=== PATIENT | female | born 1950 ===

== ENCOUNTER 2018-07-02 19:08 | Inpatient (IN) | payer MEDICARE, OTHER ==
[~2018-07-02] VITALS: Ht 162.6 cm; Wt 104.6 kg
[2018-07-02] MEDS ORDERED: HUMULIN 70100 UNIT/2 SC (19:34)
[2018-07-02] MEDS ORDERED: ALBU90OI61 INH (19:35)
[2018-07-02] MEDS ORDERED: CHOL10002 PO (19:35)
[2018-07-02] MEDS ORDERED: SUMA25 PO (19:35)
[2018-07-02] MEDS ORDERED: ATOR80 PO (19:37)
[2018-07-02] MEDS ORDERED: LORA1SY PO (19:37)
[2018-07-02] MEDS ORDERED: ASPI81CH PO (19:37)
[2018-07-02] MEDS ORDERED: Percocet 7.5-31 EACH PO (19:37)
[2018-07-02] MEDS ORDERED: PANT40 PO (19:39)
[2018-07-02] MEDS ORDERED: METF500C PO (19:39)
[2018-07-02] MEDS ORDERED: POTCHL20ER PO (19:40)
[2018-07-02] MEDS ORDERED: GABA300 PO (19:41)
[2018-07-02] MEDS ORDERED: FURO40 PO (19:41)
[2018-07-02 19:45] LABS: PCO2 Arterial 51.6 mmHg (35-45); PO2 Arterial 64.6 mmHg (80-100); pH Blood Arterial 7.44 (7.35-7.45)
[2018-07-02 20:13] LABS: BASOPHILS ABSOLUTE AUTO 0.05 K/mm3 (0.00-0.23); BASOPHILS PERCENT AUTO 1 % (0-2); EOSINOPHILS ABSOLUTE AUTO 0.01 K/mm3 (0.00-0.68); EOSINOPHILS PERCENT AUTO 0 % (0-6); Hematocrit 35.7 % (33.0-51.0); Hemoglobin 9.9 g/dL (11.5-16.0); IMMATURE GRAN ABSOLUTE AUTO 0.05 K/mm3 (0.00-0.10); IMMATURE GRAN PERCENT AUTO 1 % (0-1); LYMPHOCYTES ABSOLUTE AUTO 1.21 K/mm3 (0.84-5.20); LYMPHOCYTES PERCENT AUTO 12 % (21-46); MONOCYTES ABSOLUTE AUTO 0.96 K/mm3 (0.16-1.47); MONOCYTES PERCENT AUTO 9 % (4-13); Mean Corpuscular HGB 18.6 pg (26.0-34.0); Mean Corpuscular HGB Conc 27.7 g/dL (31.5-36.5); Mean Corpuscular Volume 67 fL (80-100); Mean Platelet Volume 9.1 fL (9.1-12.4); NEUTROPHILS ABSOLUTE AUTO 8.09 K/mm3 (1.96-9.15); NEUTROPHILS PERCENT AUTO 78 % (41-73); Platelet Count 302 K/mm3 (150-400); RDW Coefficient Variation 20.1 % (11.7-14.2); RDW Standard Deviation 47.2 fL (35.1-46.3); Red Blood Cell Count 5.32 M/mm3 (3.80-5.20); White Blood Cell Count 10.37 K/mm3 (4.00-11.30)
[2018-07-02 20:36] LABS: Acetaminophen, Random <2.0 ug/mL (10.0-30.0); Anion Gap 10 mmol/L (6-16); Blood Urea Nitrogen 18 mg/dL (8-24); Bun/Creatinine Ratio 14.8 (12.0-20.0); CO2, Blood 32 mmol/L (21-32); Calcium, Blood 8.2 mg/dL (8.5-10.1); Chloride, Blood 90 mmol/L (98-108); Creatinine, Blood 1.22 mg/dL (0.40-1.00); Glomerular Filtration Rate 47 (60-); Glucose, Blood 165 mg/dL (70-99); Potassium, Blood 3.4 mmol/L (3.5-5.5); Salicylate 6.9 mg/dL (2.8-20.0); Sodium, Blood 132 mmol/L (136-145)
[2018-07-02 20:52] LABS: Source, Urine Catheter
[2018-07-02 20:55] LABS: Blood, Urine 2+ (Neg); Glucose Qualitative, Urine Neg (Neg); Ketones, Urine 1+ (Neg); Leukocyte Esterase, Urine 2+ (Neg); Nitrite, Urine Pos (Neg); Protein, Urine 2+ (Neg); Urobilinogen, Urine 1+ (Normal)
[2018-07-02 21:08] LABS: Appearance, Urine Cloudy (Clear); Bilirubin, Urine 1+ (Neg); Color, Urine Yellow (P-Yellow)
[2018-07-02 21:09] LABS: Bacteria Many /hpf
[2018-07-02 21:10] LABS: Squamous Epithelial Cells Few /hpf (Few)
[2018-07-02 23:05] LABS: International Normalized Ratio 1.1; Prothrombin Time Results 11.3 Sec (9.7-11.5)
[2018-07-03 04:24] LABS: BASOPHILS ABSOLUTE AUTO 0.08 K/mm3 (0.00-0.23); BASOPHILS PERCENT AUTO 1 % (0-2); EOSINOPHILS ABSOLUTE AUTO 0.04 K/mm3 (0.00-0.68); EOSINOPHILS PERCENT AUTO 0 % (0-6); Hematocrit 33.6 % (33.0-51.0); Hemoglobin 9.8 g/dL (11.5-16.0); IMMATURE GRAN ABSOLUTE AUTO 0.06 K/mm3 (0.00-0.10); IMMATURE GRAN PERCENT AUTO 1 % (0-1); LYMPHOCYTES ABSOLUTE AUTO 2.04 K/mm3 (0.84-5.20); LYMPHOCYTES PERCENT AUTO 18 % (21-46); MONOCYTES ABSOLUTE AUTO 1.23 K/mm3 (0.16-1.47); MONOCYTES PERCENT AUTO 11 % (4-13); Mean Corpuscular HGB 19.2 pg (26.0-34.0); Mean Corpuscular HGB Conc 29.2 g/dL (31.5-36.5); Mean Corpuscular Volume 66 fL (80-100); Mean Platelet Volume 9.6 fL (9.1-12.4); NEUTROPHILS PERCENT AUTO 69 % (41-73); NRBC ABSOLUTE 0.02 K/mm3 (0.00-0.02); NRBC Auto 0.2 /100 WBC (0.0-0.2); Platelet Count 330 K/mm3 (150-400); RDW Coefficient Variation 20.3 % (11.7-14.2); RDW Standard Deviation 46.5 fL (35.1-46.3); White Blood Cell Count 11.25 K/mm3 (4.00-11.30)
[2018-07-03] MEDS ORDERED: VARE1 PO (04:33)
[2018-07-03] MEDS ORDERED: Prozac20 MG PO (04:36)
[2018-07-03 04:47] LABS: LDL/HDL RATIO 0.6; Magnesium, Blood 1.9 mg/dL (1.6-2.4)
[2018-07-03 04:48] LABS: Anion Gap 10 mmol/L (6-16); Blood Urea Nitrogen 18 mg/dL (8-24); Bun/Creatinine Ratio 22.7 (12.0-20.0); CHOL/HDL RATIO 1.9; CO2, Blood 32 mmol/L (21-32); Calcium, Blood 7.9 mg/dL (8.5-10.1); Chloride, Blood 92 mmol/L (98-108); Cholesterol 107 mg/dL (50-200); Creatine Kinase MB 5.3 ng/mL (0.0-3.6); Creatine Kinase MB Index 2.7 (0.0-4.0); Creatinine, Blood 0.79 mg/dL (0.40-1.00); Glomerular Filtration Rate >60 (60-); Glucose, Blood 208 mg/dL (70-99); HDL Cholesterol 56 mg/dL (>39); Low Density Lipoprotein Chol 31 mg/dL (0-110); Potassium, Blood 3.2 mmol/L (3.5-5.5); Sodium, Blood 134 mmol/L (136-145); Triglycerides 99 mg/dL (30-160); Very Low Density Lipoprot Chol 19 mg/dL (6-32)
[2018-07-03 04:49] LABS: Percent Saturation 3.3 % (15.0-50.0)
[2018-07-03 04:59] LABS: Troponin I 1.24 ng/mL (0.000-0.040)
[2018-07-03 13:34] LABS: Creatine Kinase MB 2.9 ng/mL (0.0-3.6); Creatine Kinase MB Index 1.7 (0.0-4.0)
[2018-07-03 13:45] LABS: Troponin I 0.803 ng/mL (0.000-0.040)
[2018-07-04 03:46] LABS: BASOPHILS ABSOLUTE AUTO 0.05 K/mm3 (0.00-0.23); BASOPHILS PERCENT AUTO 1 % (0-2); EOSINOPHILS ABSOLUTE AUTO 0.07 K/mm3 (0.00-0.68); EOSINOPHILS PERCENT AUTO 1 % (0-6); Hematocrit 33.3 % (33.0-51.0); Hemoglobin 9.4 g/dL (11.5-16.0); IMMATURE GRAN ABSOLUTE AUTO 0.03 K/mm3 (0.00-0.10); IMMATURE GRAN PERCENT AUTO 0 % (0-1); LYMPHOCYTES ABSOLUTE AUTO 1.97 K/mm3 (0.84-5.20); LYMPHOCYTES PERCENT AUTO 21 % (21-46); MONOCYTES ABSOLUTE AUTO 1.02 K/mm3 (0.16-1.47); MONOCYTES PERCENT AUTO 11 % (4-13); Mean Corpuscular HGB 18.3 pg (26.0-34.0); Mean Corpuscular HGB Conc 28.2 g/dL (31.5-36.5); Mean Corpuscular Volume 65 fL (80-100); Mean Platelet Volume 9.5 fL (9.1-12.4); NEUTROPHILS ABSOLUTE AUTO 6.46 K/mm3 (1.96-9.15); NEUTROPHILS PERCENT AUTO 67 % (41-73); Platelet Count 245 K/mm3 (150-400); RDW Coefficient Variation 20.7 % (11.7-14.2); RDW Standard Deviation 45.6 fL (35.1-46.3); Red Blood Cell Count 5.15 M/mm3 (3.80-5.20)
[2018-07-04 04:10] LABS: Albumin, Blood 2.8 g/dL (3.4-5.0); Anion Gap 5 mmol/L (6-16); Blood Urea Nitrogen 8 mg/dL (8-24); Bun/Creatinine Ratio 15.4 (12.0-20.0); CO2, Blood 38 mmol/L (21-32); Calcium, Blood 8.7 mg/dL (8.5-10.1); Chloride, Blood 92 mmol/L (98-108); Creatinine, Blood 0.52 mg/dL (0.40-1.00); Glomerular Filtration Rate >60 (60-); Glucose, Blood 155 mg/dL (70-99); Phosphorus, Blood 1.9 mg/dL (2.5-4.9); Potassium, Blood 2.9 mmol/L (3.5-5.5); Sodium, Blood 135 mmol/L (136-145)
[2018-07-05 05:58] LABS: BASOPHILS ABSOLUTE AUTO 0.09 K/mm3 (0.00-0.23); BASOPHILS PERCENT AUTO 1 % (0-2); EOSINOPHILS ABSOLUTE AUTO 0.17 K/mm3 (0.00-0.68); EOSINOPHILS PERCENT AUTO 2 % (0-6); Hematocrit 36.1 % (33.0-51.0); Hemoglobin 10.1 g/dL (11.5-16.0); IMMATURE GRAN ABSOLUTE AUTO 0.03 K/mm3 (0.00-0.10); IMMATURE GRAN PERCENT AUTO 0 % (0-1); LYMPHOCYTES ABSOLUTE AUTO 1.95 K/mm3 (0.84-5.20); LYMPHOCYTES PERCENT AUTO 24 % (21-46); MONOCYTES ABSOLUTE AUTO 0.75 K/mm3 (0.16-1.47); MONOCYTES PERCENT AUTO 9 % (4-13); Mean Corpuscular HGB 18.5 pg (26.0-34.0); Mean Corpuscular Volume 66 fL (80-100); Mean Platelet Volume 9.8 fL (9.1-12.4); NEUTROPHILS ABSOLUTE AUTO 5.13 K/mm3 (1.96-9.15); NEUTROPHILS PERCENT AUTO 63 % (41-73); Platelet Count 228 K/mm3 (150-400); RDW Coefficient Variation 20.5 % (11.7-14.2); RDW Standard Deviation 45.9 fL (35.1-46.3); Red Blood Cell Count 5.45 M/mm3 (3.80-5.20); White Blood Cell Count 8.12 K/mm3 (4.00-11.30)
[2018-07-05 06:21] LABS: Albumin, Blood 2.8 g/dL (3.4-5.0); Anion Gap 8 mmol/L (6-16); Blood Urea Nitrogen 7 mg/dL (8-24); Bun/Creatinine Ratio 14.2 (12.0-20.0); CO2, Blood 33 mmol/L (21-32); Chloride, Blood 95 mmol/L (98-108); Creatinine, Blood 0.49 mg/dL (0.40-1.00); Glomerular Filtration Rate >60 (60-); Glucose, Blood 148 mg/dL (70-99); Phosphorus, Blood 2.8 mg/dL (2.5-4.9); Potassium, Blood 3.5 mmol/L (3.5-5.5); Sodium, Blood 136 mmol/L (136-145)
[2018-07-05] MEDS ORDERED: CEPH500 PO (14:51)
[2018-07-05] MEDS ORDERED: CLOP75 PO (14:51)
[2018-07-05] MEDS ORDERED: METO25ER PO (14:52)
[2018-07-05] MEDS ORDERED: LOSA25 PO (14:53)
[2018-07-05] MEDS ORDERED: TRAM50 PO (14:54)
== END 2018-07-05 16:56 | disposition home or self-care (01) | DRG 871 ==
LOC: ER 19:08 → ICUW 22:08 → MEDS 07-04 14:53
PROVIDERS: Emergency Medicine; Family Medicine; Internal Medicine
PROC: 5A09357 Assistance with Respiratory Ventilation, Less than 24 Consecutive Hours, Continuous Positive Airway Pressure (ICD-10-PCS; principal; 2018-07-02)
DX: A41.51 Sepsis due to Escherichia coli [E. coli] (principal); J96.21 Acute and chronic respiratory failure with hypoxia; J96.22 Acute and chronic respiratory failure with hypercapnia; I21.A1 Myocardial infarction type 2; G92 Toxic encephalopathy; N17.9 Acute kidney failure, unspecified; E87.1 Hypo-osmolality and hyponatremia; N39.0 Urinary tract infection, site not specified; I95.2 Hypotension due to drugs; E11.42 Type 2 diabetes mellitus with diabetic polyneuropathy; Z99.81 Dependence on supplemental oxygen; E66.01 Morbid (severe) obesity due to excess calories; E83.39 Other disorders of phosphorus metabolism; R65.20 Severe sepsis without septic shock; J44.9 Chronic obstructive pulmonary disease, unspecified; T40.2X1A Poisoning by other opioids, accidental (unintentional), initial encounter; Y92.039 Unspecified place in apartment as the place of occurrence of the external cause; F17.210 Nicotine dependence, cigarettes, uncomplicated; I25.10 Atherosclerotic heart disease of native coronary artery without angina pectoris; E03.9 Hypothyroidism, unspecified; E66.9 Obesity, unspecified; F32.9 Major depressive disorder, single episode, unspecified; K21.9 Gastro-esophageal reflux disease without esophagitis; E87.6 Hypokalemia; D64.9 Anemia, unspecified; D50.9 Iron deficiency anemia, unspecified; E78.5 Hyperlipidemia, unspecified; Z88.4 Allergy status to anesthetic agent; Z91.013 Allergy to seafood; Z91.018 Allergy to other foods; Z79.4 Long term (current) use of insulin; Z79.899 Other long term (current) drug therapy; Z68.37 Body mass index [BMI] 37.0-37.9, adult
CPT/HCPCS: 36415; 36600; 71045; 80048; 80061; 80069; 81001; 82550; 82553; 82728; 82803; 82947; 83036; 83540; 83550; 83605; 83735; 84484; 85025; 85610; 85730; 87070; 87077; 87086; 87186; 87205; 87493; 93005; 93010; 93306; 94640; 94760; 97162; 97165; 97530; 99285-25; G0480; G8978; G8979; G8987; G8988; J0696; J1644; J2060; J3480; J7030; J7050

== ENCOUNTER → 2019-12-06 | Outpatient (CLI) | payer MEDICARE, OTHER ==
[~2019-12-06] MED LIST: ALBU90OI61 INH; ASPI81CH PO; ATOR80 PO; CEPH500 PO; CHOL10002 PO; CLOP75 PO; FURO40 PO; GABA300 PO; HUMULIN 70100 UNIT/2 SC; LORA1SY PO; LOSA25 PO; METF500C PO; METO25ER PO; PANT40 PO; POTCHL20ER PO; Percocet 7.5-31 EACH PO; Prozac20 MG PO; SUMA25 PO; TRAM50 PO; VARE1 PO
== END ==
LOC: LAB SHORT 18:43 → LAB 18:43
DX: L08.9 Local infection of the skin and subcutaneous tissue, unspecified (principal); D22.5 Melanocytic nevi of trunk; I87.2 Venous insufficiency (chronic) (peripheral); R60.0 Localized edema; S40.912A Unspecified superficial injury of left shoulder, initial encounter; S40.911A Unspecified superficial injury of right shoulder, initial encounter; S50.912A Unspecified superficial injury of left forearm, initial encounter; S50.911A Unspecified superficial injury of right forearm, initial encounter; S20.402A Unspecified superficial injuries of left back wall of thorax, initial encounter; S20.401A Unspecified superficial injuries of right back wall of thorax, initial encounter; L81.4 Other melanin hyperpigmentation
CPT/HCPCS: 87070; 87205